=== PATIENT | female | born 1955 | race American Indian/Alaskan Native ===

== ENCOUNTER 2016-12-27 15:57 | Outpatient (CLI) | payer OTHER ==
--- NOTE | 2016-12-28 14:32 | Mammography Report ---
BILATERAL DIGITAL SCREENING MAMMOGRAM WITH CAD: 12/27/16 CLINICAL: Routine screening.Breast cancer survivor status post right mastectomy and TRAM reconstruction . COMPARISON:12/14/15 FINDINGS: The left breast is almost entirely fatty. No mass, architectural distortion or suspicious calcifications. Normal appearance of the right TRAM reconstruction except for a stable heavily calcified 1.3 cm inner mass consistent with benign fat necrosis. IMPRESSION: No mammographic evidence of malignancy. BI-RADS CATEGORY: 2 -- Benign RECOMMENDATION: Routine mammographic screening in one year. COMMENT: Patient follow-up letters are generated by our [employer] application.
== END 2016-12-27 15:58 | disposition home or self-care (01) ==
LOC: SPVWC 15:57
PROVIDERS: ATTEND Family Medicine
DX: Z12.31 Encounter for screening mammogram for malignant neoplasm of breast (principal); Z90.11 Acquired absence of right breast and nipple
CPT/HCPCS: 77067; G0202

== ENCOUNTER 2017-12-30 12:58 | Outpatient (CLI) | payer OTHER ==
--- NOTE | 2017-12-30 14:24 | Mammography Report ---
Screening mammogram: Cancer survivor with right mastectomy/TRAM reconstruction and left breast reduction. The right breast pattern currently is generally that was one dense calcification noted medially. The left breast is also mostly fatty with benign fibroglandular pattern. These findings are all unchanged compared to prior exam in December 2016. CAD used. Impression: Stable exam. Recommendation: Annual mammogram followup. BI-RADS CATEGORY: 1 = Negative ACR BI-RADS MAMMOGRAPHIC CODES: 0 = Needs additional imaging evaluation; 1 = Negative; 2 = Benign; 3 = Probably benign; 4 = Suspicious; 5 = Malignant; 6 = Known biopsy-proven malignancy COMMENT: 1. Dense breast tissue, i.e., adenosis, fibrocystic changes, etc., may obscure an underlying neoplasm. 2. Approximately 10% of cancers are not detected with mammography. 3. A negative mammography report should not delay biopsy if a clinically suspicious mass is present.
== END 2017-12-30 12:59 | disposition home or self-care (01) ==
LOC: SPVWC 12:58
PROVIDERS: ATTEND Family Medicine
DX: Z12.31 Encounter for screening mammogram for malignant neoplasm of breast (principal)
CPT/HCPCS: 77067

== ENCOUNTER 2019-01-01 08:13 | Outpatient (CLI) | payer MEDICARE, OTHER ==
--- NOTE | 2019-01-01 11:28 | Mammography Report ---
BILATERAL DIGITAL SCREENING MAMMOGRAM WITH CAD INDICATION: Routine screening mammography. Rest cancer survivor status post right mastectomy with TRA M reconstruction. TECHNIQUE: Digital bilateral 2D mammography was obtained in the craniocaudal and mediolateral obliq ue projections. This examination was interpreted with the benefit of Computer-Aided Detection analysi s. COMPARISON: 12/30/2017 FINDINGS: Breast Density: The breasts are almost entirely fatty. No new mass, architectural distortion or suspicious calcifications. Surgical clips in the upper right reconstructed breast. A densely calcified right inner benign mass is partially included on the CC vi ew and measures at least 1 cm. IMPRESSION:No mammographic evidence of malignancy. BI-RADS Category 2: Benign. No mammographic evidence of malignancy. Recommend routine screening ma mmography in one year. A "normal" or negative report should not discourage follow up or biopsy of a clinically significant f inding. A written summary of these findings will be mailed to the patient. The patient will be entered into a mammography reporting system which will generate a reminder letter for the patient's next appointmen t at the appropriate interval. The [employer] recommends yearly mammograms starting at age 40 and continuing as l robby as a woman is in good health. Breast MRI is recommended for women with an approximate 20-25% or greater lifetime risk of breast cancer, including women with a strong family history of breast or ova stan cancer or who have been treated for Hodgkin's disease. Signer Name: Stefano Melara MD Signed: 01/01/2019 11:23 AM Workstation Name: [id number]
== END 2019-01-01 08:14 | disposition home or self-care (01) ==
LOC: SPVWC 08:13
PROVIDERS: ATTEND Internal Medicine
DX: Z12.31 Encounter for screening mammogram for malignant neoplasm of breast (principal)
CPT/HCPCS: 77067

== ENCOUNTER 2020-07-27 10:09 | Outpatient (CLI) | payer MEDICARE, OTHER ==
--- NOTE | 2020-07-27 13:09 | Mammography Report ---
BILATERAL DIGITAL SCREENING MAMMOGRAM WITH CAD HISTORY: Screening mammogram. Patient is status post right breast mastectomy with TRAM reconstruction . TECHNIQUE: Routine digital mammographic imaging performed. This examination was interpreted with feliberto lloyd benefit of Computer-aided Detection analysis. COMPARISON: 01/01/2019, 12/30/2017, 12/27/2016. FINDINGS: Breast Density: predominantly fatty breast parenchymal pattern. Digital CC and MLO views demonstrate no mammographic evidence of malignancy. IMPRESSION: No mammographic evidence of malignancy. If the clinical examination remains stable, recommend bilate ral mammogram in approximately one year. BIRADS 1: Negative. FURTHER INFORMATION: According to the [employer], yearly mammograms are recommend ed starting at age 40 and continuing as long as a woman is in good health. Clinical Breast Exams shou ld be part of a periodic health exam-about every 3 years for women in their 20s and 30s and every yea r for women 40 and over. Breast self exam is an option for women starting in their 20s. Any breast ch tiesha noted on a breast self exam should be reported promptly to the patient's healthcare provider. Br east MRI is recommended for women with an approximately 20-25% or greater lifetime risk of breast can cer, including women with a strong family history of breast or ovarian cancer and women who have been treated for Hodgkin's disease. A negative Mammography report should not discourage follow up or biopsy of a clinically significant f inding and/or abnormality. Dense breast tissue may obscure small neoplasms. The patient will be entered into a reminder system with a target due date for the next screening mamm ogram. Signer Name: Robi Brandt MD Signed: 07/27/2020 1:04 PM Workstation Name: [id number]
== END 2020-07-27 10:10 | disposition home or self-care (01) ==
LOC: SPVWC 10:09
PROVIDERS: ATTEND Internal Medicine
DX: Z12.31 Encounter for screening mammogram for malignant neoplasm of breast (principal); N64.89 Other specified disorders of breast
CPT/HCPCS: 77067

== ENCOUNTER 2021-09-13 09:55 | Outpatient (CLI) | payer MEDICARE, OTHER | END 2021-09-13 09:56 | disposition home or self-care (01) | LOC: SPVWC 09:55 | PROVIDERS: ATTEND Internal Medicine | DX: Z12.31 Encounter for screening mammogram for malignant neoplasm of breast (principal) | CPT/HCPCS: 77067 ==